=== PATIENT | male | born 1980 | race Caucasian/White ===

== ENCOUNTER 2020-11-20 11:08 | Emergency (ER) | payer OTHER ==
[~2020-11-20] VITALS: Ht 182 cm; Wt 77.0 kg
[2020-11-20] MEDS ORDERED: KETOROLAC 60 MG/2 ML VIAL ONE (11:10)
[2020-11-20] MEDS ORDERED: ORPHENADRINE 60 MG/2 ML (NORFLEX) AMP (ED ONLY) ONE (11:11)
--- NOTE | 2020-11-20 11:24 | ED Back Pain ---
General Stated Complaint: BACK PAIN Source of Information: Patient Exam Limitations: No Limitations History of Present Illness Date Seen by Provider: Nov 20, 2020 Time Seen by Provider: 11:10 Initial Comments Patient reports ER by private conveyance with his significant other chief complaint that since yesterday he had a back spasm and pain. Caused him to almost lose control of his bladder but he has had no difficulty urinating no saddle anesthesia. He did fall to his knees multiple times due to pain in his legs giving out. Pain goes down bilateral legs bilateral sides of his back starting at his low thoracic moving down. He says he had panics before and usually he can manage it with a chiropractor. He had x-rays of his back but never had anything worked up by his doctor at [facility] nor has he had referral to surgery or any advanced imaging. He is having numbness and tingling down the back of both legs just to the level of his knees. Allergies and Home Medications Allergies Coded Allergies: No Known Allergies (Verified Allergy, Unknown, 11/15/05) Home Medications Cyclobenzaprine HCl 10 Mg Tablet, 10 MG PO Q8H PRN for SPASMS Prescribed by: BACILIO TREADWELL on 11/20/20 1229 Hydrocodone/Acetaminophen 1 Each Tablet, 1 TAB PO Q6H PRN for PAIN-MODERATE (5- 7) Prescribed by: BACILIO TREADWELL on 11/20/20 1230 Naproxen 500 Mg Tablet, 500 MG PO BID Prescribed by: BACILIO TREADWELL on 11/20/20 1229 Patient Home Medication List Home Medication List Reviewed: Yes Review of Systems Constitutional: No chills, No diaphoresis EENTM: No ear discharge, No ear pain Respiratory: No cough, No short of breath Cardiovascular: No chest pain, No edema Gastrointestinal: No abdominal pain, No nausea, No vomiting Genitourinary: No decreased output, No dysuria Musculoskeletal: No back pain, No joint pain All Other Systems Reviewed Negative Unless Noted: Yes Past Gribdwb-Rtdfwg-Pjlapz Hx Patient Social History Alcohol Use: Denies Use Smoking Status: Never a Smoker Physical Exam Vital Signs Vital Signs - First Documented 11/20/20 11:08 Temp 35.5 Pulse 74 Resp 18 B/P (MAP) 129/113 (118) Pulse Ox 99 Capillary Refill : Height, Weight, BMI Height: '" Weight: lbs. oz. kg; BMI Method: General Appearance: WD/WN, Moderate Distress HEENT: PERRL/EOMI, Pharynx Normal, Moist Mucous Membranes Neck: Full Range of Motion, Normal Inspection, Non Tender Cardiovascular: Regular Rate, Rhythm, No Edema, Normal Peripheral Pulses Respiratory: Chest Non Tender, Lungs Clear, Normal Breath Sounds, No Accessory Muscle Use, No Respiratory Distress Gastrointestinal: Normal Bowel Sounds, No Organomegaly, Non Tender, Soft Extremity: Normal Capillary Refill, Normal Inspection, No Pedal Edema Neurologic/Psychiatric: Alert, Oriented x3 Skin: Normal Color, Warm/Dry Progress/Results/Core Measures Results/Orders My Orders Orders - BACILIO TREADWELL Ct Thoracic/Lumbar Spine Wo (11/20/20 11:16) Orphenadrine Inj (Ed Only) (Norflex Inje (11/20/20 11:30) Ketorolac Injection (Toradol Injection) (11/20/20 11:30) Ketorolac Injection (Toradol Injection) (11/20/20 11:10) Orphenadrine Inj (Ed Only) (Norflex Inje (11/20/20 11:11) Hydrocodone/Apap 5/325 Tablet (Lortab 5 (11/20/20 12:00) Methylprednisolone Acetate Inj (Depo-Med (11/20/20 12:45) Medications Given in ED Current Medications Medications Dose Ordered Sig/Alice Route Start Time Stop Time Status Last Admin Dose Admin Acetaminophen/ Hydrocodone Bitart 1 ea ONCE ONCE PO 11/20/20 12:00 11/20/20 12:01 DC 11/20/20 12:03 1 EA Ketorolac Tromethamine 60 mg ONCE ONCE IM 11/20/20 11:30 11/20/20 11:31 DC 11/20/20 11:23 60 MG Methylprednisolone Acetate 40 mg ONCE ONCE IM 11/20/20 12:45 11/20/20 12:46 DC 11/20/20 12:49 40 MG Orphenadrine Citrate 60 mg ONCE ONCE IM 11/20/20 11:30 11/20/20 11:31 DC 11/20/20 11:22 60 MG Vital Signs/I&O 11/20/20 11/20/20 11:08 13:00 Temp 35.5 Pulse 74 74 Resp 18 18 B/P (MAP) 129/113 (118) 122/70 (118) Pulse Ox 99 99 Progress Progress Note #1: Time: 11:21 Progress Note His legs giving out from under him and pain bilaterally and paresthesias bilaterally is concerning for significant radiculopathy. We will get a CT of his thoracolumbar spine and give him Toradol and Norflex. Progress Note #2: Time: 12:22 Progress Note The Toradol did not help much for his pain however his muscles are much more relaxed after the Norflex. Given tablet hydrocodone. Discussed the case and the imaging and suggested strongly that he follow-up with physical therapy. Because of his frequency of these back spasm issues we have offered him a Depo- Medrol shot which he is inclined to do. We also discussed other pain management strategies including back brace, heat, ice, stretching exercises and topical creams. We suggest strongly that he follow-up with an orthopedic surgeon to help manage his back issues and discuss whether eventually more advanced imaging would be indicated. We gave return precautions and answered questions. Patient and his significant other are in agreement with this plan. Diagnostic Imaging Diagonstic Imaging: CT (Without IV contrast) Plain Films/CT/US/NM/MRI: other (Thoracolumbar spine) Comments NAME: LUANNE WILLOUGHBY [facility] REC#: [id number] PT STATUS: REG ER : 1980 PHYSICIAN: BACILIO TREADWELL MD ADMIT DATE: 11/20/20/ER Draft Date of Exam:11/20/20 CT THORACIC/LUMBAR SPINE WO PROCEDURE: CT thoracic and lumbar spine without contrast. TECHNIQUE: Multiple contiguous axial images were obtained through the thoracic and lumbar spine without the use of intravenous contrast. Sagittal and coronal reformations were then performed. All CT scans use one or more of the following dose optimizing techniques: automated exposure control, MA and/or KvP adjustment based on a patient size and exam type, or iterative reconstruction. INDICATION: Midline back pain. Tender to palpation. Bilateral radiculopathy. Legs give out due to pain. CORRELATION STUDY: None FINDINGS: Thoracic spinal alignment is relatively anatomic. There is no acute appearing compression deformity or significant loss of intervertebral body height. There is fairly good preservation of the disc spaces. There is no significant osseous narrowing of the canal and/or foramina. Posterior limits are in normal alignment. Paraspinal soft tissues and visualized lung sanders are unremarkable. Lumbar spinal alignment demonstrates minimal rightward curvature and rotation but is otherwise anatomic. Lumbar vertebral body heights are maintained. No osseous encroachment or narrowing of the spinal canal. Very slight asymmetric loss of disc space height L4-L5 level. This does result in bilateral foraminal narrowing owing to disc osteophyte formation. Less severe findings at the L3-L4 level. There does appear to be mild ligamentum hypertrophy at the L4-L5 level with mild spinal canal narrowing as well. Less severe findings at the L3-L4 level. There is presence of nonacute pars articularis defect at the L5 level. No significant spondylolisthesis. IMPRESSION: 1. Negative for acute bony abnormality of the thoracic spine. 2. Negative for acute bony abnormality of the lumbar spine. There are does appear to be varying degrees of mild foraminal and spinal canal narrowing particularly at the L4-L5 and L3-L4 level. Also presence of nonacute pars articularis defect L5 level without significant spondylolisthesis. Dictated on workstation # [id number] Dict: 11/20/20 1140 Trans: 11/20/20 1159 [facility] [id number] Interpreted by: NATI GIBSON DO Electronically signed by: Reviewed: Reviewed by Me Departure Impression Primary Impression: Lumbar radiculopathy Disposition: 01 HOME, SELF-CARE Condition: Stable Departure-Patient Inst. Decision time for Depature: 12:10 Referrals: CHRISTAL ALBERTO MD,DEMARCUS STOUT,ABIODUN Agustin MD Patient Instructions: Radiculopathy (DC), Back Stretches on Floor Add. Discharge Instructions: Make sure you are drinking plenty of fluids. Use ice for the first couple days for 20 minutes every 2 hours while awake. Warm moist heat and topical creams such as icy hot or creams with capsaicin oil afterwards. Tylenol 650 mg every 8 hours as necessary for pain. Start a regimen of NSAIDs daily to reduce the inflammation in your back. Ibuprofen 800 mg every 8 hours or naproxen 500 mg twice a day. The steroid should kick in about 12 to 24 hours and reduce inflammation in your back. It will last for about 5 to 7 days. If you have severe pain keeping you from being functional then you may utilize 1 tablet of hydrocodone every 6 hours as necessary. If you have muscle spasms again in your back you may take cyclobenzaprine/Flexeril 1 tablet every 8 hours as necessary. Flexeril will cause drowsiness and you should be cautious when combining this with hydrocodone which will also cause drowsiness. Stay active moving around the house and doing your stretching exercises. Do not lift, push or pull greater than 20 pounds until cleared by a doctor. Obtain a back brace and wear it on the days that you need it. Follow the stretching exercises and consider engaging in a course of physical therapy. You may follow-up with [facility] physical therapy by calling for a no upfront cost evaluation at [phone]. I highly encourage you also to follow-up with an orthopedic surgeon such as Dr. STOUT, Dr. Rubio or [facility] by calling [phone]. You should also seek help through your primary care office and managing your symptoms. Promptly return to the ER if you experience numbness in your saddle region, inability to urinate, or falls caused by weakness or numbness in your legs. Scripts Naproxen (Naprosyn) 500 Mg Tablet 500 MG PO BID for 14 Days, #30 TAB 0 Refills Prov: BACILIO TREADWELL 11/20/20 Cyclobenzaprine HCl (Cyclobenzaprine HCl) 10 Mg Tablet 10 MG PO Q8H PRN for SPASMS, #15 TAB 0 Refills Prov: BACILIO TREADWELL 11/20/20 Hydrocodone/Acetaminophen (Hydrocodone-Acetamin 5-325 mg) 1 Each Tablet 1 TAB PO Q6H PRN for PAIN-MODERATE (5-7), #10 TAB 0 Refills Prov: BACILIO TREADWELL 11/20/20 Work/School Note: Work Release Form Date Seen in the Emergency Department: Nov 20, 2020 Return to Work: Nov 23, 2020 Restrictions: Need Release from Doctor Other Restrictions Listed Below: Do not lift, pull or push more than 20 pounds until 12/05/2020. BACILIO TREADWELL Nov 20, 2020 11:24
[2020-11-20] MEDS ORDERED: ORPHENADRINE 60 MG/2 ML (NORFLEX) AMP (ED ONLY) IM ONE (11:30)
[2020-11-20] MEDS ORDERED: KETOROLAC 60 MG/2 ML VIAL IM ONE (11:30)
[2020-11-20] MEDS ORDERED: HYDROcodone/APAP 5 MG/325 MG (LORTAB) TAB PO ONE (12:00)
--- NOTE | 2020-11-20 12:01 | Diagnostic Imaging Report ---
PROCEDURE: CT thoracic and lumbar spine without contrast. TECHNIQUE: Multiple contiguous axial images were obtained through the thoracic and lumbar spine without the use of intravenous contrast. Sagittal and coronal reformations were then performed. All CT scans use one or more of the following dose optimizing techniques: automated exposure control, MA and/or KvP adjustment based on a patient size and exam type, or iterative reconstruction. INDICATION: Midline back pain. Tender to palpation. Bilateral radiculopathy. Legs give out due to pain. CORRELATION STUDY: None FINDINGS: Thoracic spinal alignment is relatively anatomic. There is no acute appearing compression deformity or significant loss of intervertebral body height. There is fairly good preservation of the disc spaces. There is no significant osseous narrowing of the canal and/or foramina. Posterior limits are in normal alignment. Paraspinal soft tissues and visualized lung sanders are unremarkable. Lumbar spinal alignment demonstrates minimal rightward curvature and rotation but is otherwise anatomic. Lumbar vertebral body heights are maintained. No osseous encroachment or narrowing of the spinal canal. Very slight asymmetric loss of disc space height L4-L5 level. This does result in bilateral foraminal narrowing owing to disc osteophyte formation. Less severe findings at the L3-L4 level. There does appear to be mild ligamentum hypertrophy at the L4-L5 level with mild spinal canal narrowing as well. Less severe findings at the L3-L4 level. There is presence of nonacute pars articularis defect at the L5 level. No significant spondylolisthesis. IMPRESSION: 1. Negative for acute bony abnormality of the thoracic spine. 2. Negative for acute bony abnormality of the lumbar spine. There are does appear to be varying degrees of mild foraminal and spinal canal narrowing particularly at the L4-L5 and L3-L4 level. Also presence of nonacute pars articularis defect L5 level without significant spondylolisthesis. Dictated by: Dictated on workstation # [id number]
[2020-11-20] MEDS ORDERED: CYCL10TA9 PO (12:29)
[2020-11-20] MEDS ORDERED: NAPR-1071 PO (12:29)
[2020-11-20] MEDS ORDERED: ACHD5005 PO (12:29)
[2020-11-20] MEDS ORDERED: methylPREDNISolone 40 MG/ML (DEPO MEDROL) VIAL IM ONE (12:45)
[2020-11-20 13:00] VITALS: BP 122/70
== END 2020-11-20 12:59 | disposition home or self-care (01) ==
LOC: EDUNIT# 11:08 → ER 11:11
DX: M54.16 Radiculopathy, lumbar region (principal)
CPT/HCPCS: 72128; 72131